=== PATIENT | male | born 1960 | race Caucasian/White ===

== ENCOUNTER → 2024-08-09 12:48 | Outpatient (REF) | payer MEDICARE, BC, SELFPAY | LOC: HWRAD 12:48 | PROVIDERS: ATTENDING PHYSICIAN Urology; FAMILY PHYSICIAN Family Medicine | DX: Z87.442 Personal history of urinary calculi (principal) | CPT/HCPCS: 76775 ==

== ENCOUNTER → 2025-08-24 07:56 | Outpatient (REF) | payer MEDICARE, BC, SELFPAY | LOC: HWRAD 07:56 | PROVIDERS: ATTENDING PHYSICIAN Urology; FAMILY PHYSICIAN Family Medicine | DX: N20.0 Calculus of kidney (principal) | CPT/HCPCS: 76775 ==